=== PATIENT | male | born 1945 | race Caucasian/White ===

== ENCOUNTER 2017-11-30 10:13 | Outpatient (CLI) | payer MEDICARE ==
[2017-11-30 10:40] LABS: TOTAL HEMOGLOBIN 15.9 G/dl (14.0-18.0)
[2017-11-30] MEDS ORDERED: albuterol 2.5 MG/3 ML nebule NEB ONE (11:00)
== END 2017-11-30 23:59 | disposition home or self-care (01) ==
LOC: RT 10:13
PROVIDERS: ATTEND Internal Medicine Pulmonary Disease
DX: J43.9 Emphysema, unspecified (principal); Z87.891 Personal history of nicotine dependence; Z79.899 Other long term (current) drug therapy
CPT/HCPCS: 85018; 94060; 94640; 94727; 94729; 94760